=== PATIENT | male | born 1985 | race Caucasian/White ===

== ENCOUNTER 2022-02-03 07:58 | Emergency (ER) | payer BC, MEDICAID, SELFPAY ==
[2022-02-03 08:02] VITALS: BMI 33.9
[2022-02-03 08:05] VITALS: BP 133/89; PULSE 91; RESP 18; TEMP 36.9; O2SAT 97
--- NOTE | 2022-02-03 08:14 | ED_ITS ---
HPI - Male Genitourinary General: Chief complaint: Urogenital-Male Stated complaint: abd pain, cant urinate Time Seen by Provider: 02/03/22 08:04 Source: patient Mode of arrival: ambulatory History of Present Illness: 36-year-old male presents emergency room with complaints of suprapubic pain with nausea he is complaining of some dysuria as well he no hematuria. States several years ago he had a kidney stone and feels the same as this 1. Severe pains in suprapubic region radiating a little bit into the left side. He has not had any diarrhea no hematochezia melena hematemesis or coffee-ground emesis he does feel very nauseous. No fever sweats or chills. Progressively worsening over the last 2 days. Onset (ago): day(s) Duration: constant Location: abdomen (Suprapubic) Radiation: left flank Severity: severe Quality: sharp Relieving factors: none Exacerbating factors: none Associated symptoms: Reports dysuria and nausea; Deny discharge, fevers/chills, hematuria, rash, swelling, urinary incontinence, urinary retention, mass or vomiting Review of Systems Const: Denies: fever(s), chills, body aches, change in appetite, fatigue or malaise ENMT: Denies: throat pain, ear or mastoid pain, nasal discharge or nasal congestion Card: Denies: chest pain, edema, dyspnea on exertion or orthopnea Resp: Denies: dyspnea, productive cough or non-productive cough GI: Reports: abdominal pain, nausea, bloating and GI cramping; Denies: vomiting, diarrhea or constipation : Reports: flank pain and dysuria; Denies: difficulty urinating, urinary frequency, urinary urgency, urinary incontinence or hematuria Musc: Reports: back pain Skin/Breast: Denies: rash or pruritus PFSH ED PFSH: Medical History (Updated 02/03/22 @ 09:52 by Reji Chao DO) Nephrolithiasis Social History (Updated 02/03/22 @ 09:52 by Reji Chao DO) Smoking and tobacco status: never smoked Alcohol intake: never Physical Exam Const: COMMON NORMALS: no acute distress GENERAL APPEARANCE: cooperative and comfortable ORIENTATION/CONSCIOUSNESS: Yes awake, Yes oriented to person, Yes oriented to place and Yes oriented to time HENMT: COMMON NORMALS: normocephalic, atraumatic and hearing grossly normal bilaterally HEAD & SCALP: normocephalic and atraumatic Resp: COMMON NORMALS: normal respiratory effort, No retractions, No use of accessory muscles and clear to auscultation bilaterally AUSCULTATION: clear to auscultation bilaterally Cardio: COMMON NORMALS: regular rate, regular rhythm and No murmurs present (Cardio) RATE: regular rate RHYTHM: regular rhythm GI: COMMON NORMALS: No hepatosplenomegaly present AUSCULTATION: Yes normoactive bowel sounds PALPATION: Yes Tenderness to palpation present (GI) (Suprapubic left lower quadrant), No Guarding due to palpation present (GI) and Yes No hepatosplenomegaly present Extremity: COMMON NORMALS: normal to inspection, capillary refill normal, no clubbing, cyanosis or edema, no calf tenderness and no pedal edema Neuro: SENSORIUM/ORIENTATION: Yes oriented to person, Yes oriented to place and Yes oriented to time Skin: COMMON NORMALS: no rashes or lesions noted GENERAL SKIN EXAM: no rashes or lesions noted Course Vital Signs: Vital signs: Vital Signs Temperature 98.5 F 02/03/22 08:05 Pulse Rate 91 02/03/22 08:05 Respiratory Rate 14 02/03/22 09:02 Blood Pressure 133/89 02/03/22 08:05 Pulse Oximetry 97 02/03/22 09:02 Oxygen Delivery Me thod 02/03/22 08:05 MDM - Male Medical Decision Making Initial presentation was highly suggestive of renal stone. No hematuria CT negative for stone does show acute diverticulitis. We will treat the same Cipro and Flagyl hydrocodone for pain Zofran for nausea clear liquid diet 24 to 48 hours advance as tolerated follow-up with primary care for colonoscopy at some later date. Medical Records I reviewed the patient's medical records. Lab Data I reviewed the patient's lab results. 02/03/22 08:55 02/03/22 08:55 Radiology Impressions Abdomen/Pelvis CT 02/03/22 08:18 IMPRESSION: 1. Acute sigmoid diverticulitis. No drainable abscess or fluid collection. Surrounding inflammatory stranding with edema and a small amount of fluid. Recommend follow-up to resolution. 2. No hydronephrosis. No obstructing renal or ureteral calculi. 3. Normal appendix RIGHT lower quadrant. Message LEFT for Reji Bradshawan, DO at 02/03/2022 9:17 AM. Laboratory Results WBC 11.6 10^3/uL (4.0-10.0) H 02/03/22 08:55 RBC 5.12 10^6/uL (4.1-5.3) 02/03/22 08:55 Hgb 15.1 g/dL (11.7-16.6) 02/03/22 08:55 Hct 44.0 % (42.0-52.0) 02/03/22 08:55 MCV 85.9 fl (80-94) 02/03/22 08:55 MCH 29.5 pg (28.0-34.0) 02/03/22 08:55 MCHC 34.3 g/dL (30.0-36.0) 02/03/22 08:55 RDW 12.8 % (12.1-15.1) 02/03/22 08:55 Plt Count 223 10^3/cmm (130-400) 02/03/22 08:55 MPV 10.0 fL (7.4-10.4) 02/03/22 08:55 Neut % (Auto) 69.6 % 02/03/22 08:55 Lymph % (Auto) 19.6 % 02/03/22 08:55 [place]yer % (Auto) 9.2 % 02/03/22 08:55 Eos % (Auto) 0.9 % 02/03/22 08:55 Baso % (Auto) 0.3 % 02/03/22 08:55 Neut # (Auto) 8.08 10^3/uL (1.8-7.7) H 02/03/22 08:55 Lymph # (Auto) 2.3 10^3/uL (0.8-4.8) 02/03/22 08:55 Dyer # (Auto) 1.1 10^3/uL (0.2-0.9) H 02/03/22 08:55 Eos # (Auto) 0.1 10^3/uL (0.0-0.8) 02/03/22 08:55 Baso # (Auto) 0.0 10^3/uL (0.0-0.1) 02/03/22 08:55 Nucleated RBC % (auto) 0 % 02/03/22 08:55 Nucleated RBCs # 0.0 /100WBC 02/03/22 08:55 Sodium 136 mmol/L (136-145) 02/03/22 08:55 Potassium 4.0 mmol/L (3.5-5.1) 02/03/22 08:55 Chloride 102 mmol/L (98-107) 02/03/22 08:55 Carbon Dioxide 23 mmol/L (22-29) 02/03/22 08:55 Anion Gap 15.0 (5-19) 02/03/22 08:55 BUN 9 mg/dL (6-20) 02/03/22 08:55 Creatinine 0.9 mg/dL (0.7-1.2) 02/03/22 08:55 GFR Calculation 96.0 mL/min (90-130) 02/03/22 08:55 Glucose 127 mg/dL (65-115) H 02/03/22 08:55 Calculated Osmolality 282 mOsm/kg (285-295) L 02/03/22 08:55 Calcium 9.4 mg/dL (8.5-10.5) 02/03/22 08:55 Urine Color Yellow (Yellow) 02/03/22 08:53 Urine Appearance Clear (CLEAR) 02/03/22 08:53 Urine pH 7 (5-7) 02/03/22 08:53 Ur Specific [place] 1.010 (1.005-1.030) 02/03/22 08:53 Urine Protein Neg (Negative) 02/03/22 08:53 Urine Glucose (UA) Norm (Normal) 02/03/22 08:53 Urine Ketones Negative (Negative) 02/03/22 08:53 Urine Blood Neg (Negative) 02/03/22 08:53 Urine Nitrate Negative (Negative) 02/03/22 08:53 Urine Bilirubin Neg (Negative) 02/03/22 08:53 Urine Urobilinogen Norm mg/dL (Negative) 02/03/22 08:53 Ur Leukocyte Esterase Negative (Negative) 02/03/22 08:53 Discharge Plan Discharge Patient Disposition: Home Clinical Impression: Diverticulitis Condition: Stable Prescriptions: New Cipro 500 mg tablet 500 mg PO BID Qty: 20 0RF metronidazole 500 mg tablet 500 mg PO BID 10 Days Qty: 20 0RF hydrocodone-acetaminophen 5-325 mg tablet 1 tab PO Q6H PRN (Reason: pain) Qty: 15 0RF ondansetron HCl 4 mg tablet 4 mg PO Q6H PRN (Reason: nausea and vomiting) Qty: 20 0RF Discharge Orders: Discharge ED (Routine); Ordered 02/03/22 Ordered By: Reji Chao Discharge Diet: Clear Liquid Discharge Activity: Increase activity as tolerated Patient Instructions: Opioid Safety, Pain Management Activity Restrictions/Additional Instructions: Clear liquid diet for the next 24 to 48 hours and advance as needed. Start antibiotics. Follow-up with primary care within the next month will likely need a colonoscopy. Coding Level of Care Code ED Software Licensing Specialist for Marta Cagle
--- NOTE | 2022-02-03 08:18 | CT_ITS ---
WS: [id number] CT ABDOMEN PELVIS TECHNIQUE: Noncontrast CT of the abdomen and pelvis with coronal and sagittal reformatted images. CLINICAL INFORMATION: flank pain COMPARISON: None. DLP: 1034.[address] scans at [facility] use at least one of these dose optimization techniques: automated e xposure control; mA and/or kV adjustment per patient size (includes targeted exams where dose is matc hed to clinical indication); or iterative reconstruction. FINDINGS: No hydronephrosis in either kidney. No obstructing renal or ureteral calculi. Thickening of the sigmoid colon with inflammatory stranding and edema compatible with acute diverticu litis. Small amount of surrounding edema and induration in the mesentery. No drainable abscess or flu id collection. Normal appendix in the RIGHT lower quadrant. Lung bases are well aerated. Normal noncontrast liver. Normal noncontrast spleen. Normal GE junction. Adrenal glands are normal. Noncontrast pancreas is normal. Normal caliber abdominal aorta. Mild aort ic calcification. No abdominal lymphadenopathy. No pelvic or inguinal lymphadenopathy. CT/CT kidney stone [id number] IMPRESSION: 1. Acute sigmoid diverticulitis. No drainable abscess or fluid collection. Krysta rounding inflammatory stranding with edema and a small amount of fluid. Recomme nd follow-up to resolution. 2. No hydronephrosis. No obstructing renal or ureteral calculi. 3. Normal appendix RIGHT lower quadrant. Message LEFT for Reji Chao DO at 02/03/2022 9:17 AM.
[2022-02-03 09:02] VITALS: RESP 14; O2SAT 97
[2022-02-03] MEDS: ondansetron 2 mg/ML SDV 2 mL 4 MG IVP (09:02)
[2022-02-03] MEDS: morphine 4 mg/mL SDV 1 mL 6 MG IVP (09:02)
[2022-02-03 09:03] LABS: Basophils % 0.3 %; Eosinophils # 0.1 10^3/uL (0.0-0.8); Eosinophils % 0.9 %; Hemoglobin 15.1 g/dL (11.7-16.6); Lymphocytes # 2.3 10^3/uL (0.8-4.8); Lymphocytes % 19.6 %; Mean Corpuscular HGB Conc 34.3 g/dL (30.0-36.0); Mean Corpuscular Hemoglobin 29.5 pg (28.0-34.0); Mean Corpuscular Volume 85.9 fl (80-94); Monocytes # 1.1 10^3/uL (0.2-0.9); Monocytes % 9.2 %; Neutrophils # 8.08 10^3/uL (1.8-7.7); Neutrophils % 69.6 %; Nucleated Red Blood Cells % 0 %; Platelet Count 223 10^3/cmm (130-400); Red Blood Count 5.12 10^6/uL (4.1-5.3); Red Cell Distribution Width 12.8 % (12.1-15.1); White Blood Count 11.6 10^3/uL (4.0-10.0)
[2022-02-03] MEDS: sodium chloride 0.9% 1,000 ML 999 ML IV (09:03)
[2022-02-03 09:08] LABS: Add Urine Microscopic? NO; Charge for UA Resulting for Rev
[2022-02-03 09:10] LABS: Bilirubin Urine Neg (Negative); Blood Urine Neg (Negative); Glucose Urine UA Norm (Normal); Ketones Urine Negative (Negative); Leukocyte Esterase Urine Negative (Negative); Nitrate Urine Negative (Negative); Protein Urine Neg (Negative); Urine Appearance Clear (CLEAR); Urine Color Yellow (Yellow); Urobilinogen Urine Norm (Negative); pH Urine 7 (5-7)
[2022-02-03 09:21] LABS: Blood Urea Nitrogen 9 mg/dL (6-20); Calcium 9.4 mg/dL (8.5-10.5); Carbon Dioxide 23 mmol/L (22-29); Chloride 102 mmol/L (98-107); Glucose 127 mg/dL (65-115); Osmolality Calculated 282 mOsm/kg (285-295); Sodium 136 mmol/L (136-145)
[2022-02-03 09:52] VITALS: BP 122/85; PULSE 76; RESP 14; O2SAT 96
== END 2022-02-03 09:53 | disposition home or self-care (01) ==
PROVIDERS: Emergency Provider Family Medicine
DX: K57.92 Diverticulitis of intestine, part unspecified, without perforation or abscess without bleeding (principal)
CPT/HCPCS: 74176; 80048; 81003; 85025; 96361; 96374; 96375; 99285; J2270; J2405; J7030

== ENCOUNTER 2022-02-04 19:45 | Emergency (ER) | payer BC, MEDICAID, SELFPAY ==
[2022-02-04 20:32] VITALS: BP 129/81; PULSE 84; RESP 18; TEMP 37.2; O2SAT 95; BMI 36.4
--- NOTE | 2022-02-04 20:33 | XRR_ITS ---
PROCEDURE INFORMATION: Exam: XR Abdomen Exam date and time: 02/04/2022 9:14 PM Age: 36 years old Clinical indication: Abdominal pain; Acute; Additional info: Worsening abd pain, dx diverticulitis yesterday TECHNIQUE: Imaging protocol: Radiologic exam of the abdomen. Views: Frontal supine view of the abdomen. 1 View. COMPARISON: CT kidney stone [id number] 02/03/2022 8:37 AM FINDINGS: Gastrointestinal tract: [id number] constipation without bowel dilation to indicate obstruction. Bones/joints: Unremarkable. XR/XR abdomen 1V* [id number] IMPRESSION: [id number] constipation without bowel dilation to indicate obstruction.
[2022-02-04 22:37] LABS: Basophils % 0.3 %; Eosinophils # 0.1 10^3/uL (0.0-0.8); Hematocrit 43.8 % (42.0-52.0); Hemoglobin 14.7 g/dL (11.7-16.6); Lymphocytes % 31.5 %; Mean Corpuscular HGB Conc 33.6 g/dL (30.0-36.0); Mean Corpuscular Hemoglobin 29.5 pg (28.0-34.0); Mean Corpuscular Volume 87.8 fl (80-94); Mean Platelet Volume 10.4 fL (7.4-10.4); Monocytes # 1.3 10^3/uL (0.2-0.9); Monocytes % 10.3 %; Neutrophils # 7.09 10^3/uL (1.8-7.7); Neutrophils % 56.3 %; Nucleated Red Blood Cells % 0 %; Platelet Count 246 10^3/cmm (130-400); Red Blood Count 4.99 10^6/uL (4.1-5.3); Red Cell Distribution Width 12.7 % (12.1-15.1); White Blood Count 12.6 10^3/uL (4.0-10.0)
[2022-02-04 22:58] LABS: Anion Gap 16.1 (5-19); Blood Urea Nitrogen 8 mg/dL (6-20); Calcium 9.4 mg/dL (8.5-10.5); Carbon Dioxide 25 mmol/L (22-29); Chloride 100 mmol/L (98-107); Glucose 89 mg/dL (65-115); Osmolality Calculated 282 mOsm/kg (285-295); Potassium 4.1 mmol/L (3.5-5.1); Sodium 137 mmol/L (136-145)
[2022-02-04 22:59] LABS: Lactic Sepsis W/Reflex 0.7 mmol/L (0.5-2.2)
--- NOTE | 2022-02-05 01:04 | CTR_ITS ---
PROCEDURE INFORMATION: Exam: CT Abdomen And Pelvis Without Contrast Exam date and time: 02/05/2022 1:28 AM Age: 36 years old Clinical indication: Abdominal pain; Localized; Left lower quadrant (llq); Additional info: Llq pain, constipation TECHNIQUE: Imaging protocol: Computed tomography of the abdomen and pelvis without contrast. Radiation optimization: All CT scans at this facility use at least one of these dose optimization techniques: automated exposure control; mA and/or kV adjustment per patient size (includes targeted exams where dose is matched to clinical indication); or iterative reconstruction. COMPARISON: CR (ABDOMEN, ) 02/04/2022 9:14 PM RADIATION DOSE METRICS: Total DLP (mGy-cm): 1150.22 FINDINGS: Lungs: Bibasilar atelectasis versus minimal infiltrate. Heart: Coronary artery atherosclerotic calcifications. Liver: Hepatic steatosis. Gallbladder and bile ducts: Normal. No calcified stones. No ductal dilation. Pancreas: Normal. No ductal dilation. Spleen: Normal. No splenomegaly. Adrenal glands: Normal. No mass. Kidneys and ureters: Right kidney punctate nonobstructing calyceal stone. Stomach and bowel: Edema and nonlocalized fluid seen about the mid sigmoid colon in the area of multiple diverticula consistent with diverticulitis. Constipation. Appendix: No evidence of appendicitis. Intraperitoneal space: Unremarkable. No free air. No significant fluid collection. Vasculature: Unremarkable. No abdominal aortic aneurysm. Lymph nodes: Unremarkable. No enlarged lymph nodes. Urinary bladder: Unremarkable as visualized. Reproductive: Unremarkable as visualized. Bones/joints: Unremarkable. No acute fracture. Soft tissues: Unremarkable. CT/CT abdomen pelvis [facility] [id number] IMPRESSION: 1. Edema and nonlocalized fluid seen about the mid sigmoid colon in the area of multiple diverticula consistent with diverticulitis. 2. Bibasilar atelectasis versus minimal infiltrate. 3. Coronary artery atherosclerotic calcifications. 4. Hepatic steatosis. 5. Constipation. 6.Right kidney punctate nonobstructing calyceal stone.
--- NOTE | 2022-02-05 01:16 | W.ED.ABDPA2 ---
Documented by User: [email or web address] Gentile 02/05/22 02:20 HPI - Abdominal Pain General: Chief Complaint: Abdominal Pain Stated Complaint: fever, High P/B, abd pain Time Seen by Provider: 02/05/22 00:38 History of Present Illness: Patient is a 36-year-old male who comes to the ED with abdominal pain. Patient was seen here in the ED for same complaint on February 03 and diagnosed with diverticulitis. He was discharged home with a prescription for nausea meds, Miller, Cipro and Flagyl. Patient says he is taking all his antibiotic doses for the past 2 days. He has been able to manage his symptoms with the hydrocodone and Zofran. Today he developed a fever and he describes his abdominal pain being a little more severe and sharp. It is located in the left lower quadrant of the abdomen. He endorses being constipated and says his last bowel movement was on February 02. Associated Symptoms: Reports constipation, fever(s) and nausea; Denies chills, diarrhea, dysuria, hematochezia, hematuria and vomiting Review of Systems Const: Reports: fever(s); Denies: chills or fatigue Eyes: Denies: change in vision or eye discomfort ENMT: Denies: throat pain, odynophagia, nasal discharge or nasal congestion Card: Denies: chest pain, palpitations, edema, swelling of feet/ankles, dyspnea on exertion or orthopnea Resp: Denies: dyspnea, productive cough or non-productive cough GI: Reports: abdominal pain (Left lower quadrant), nausea and constipation; Denies: vomiting, diarrhea or hematochezia : Denies: flank pain, difficulty urinating, dysuria or hematuria Musc: Denies: neck pain, back pain or extremity swelling Skin/Breast: Denies: rash or new lesions Neuro: Denies: headache(s), numbness in extremities or weakness in extremities PFS ED PFSH: Medical History Nephrolithiasis No pertinent family history Social History Smoking and tobacco status: never smoked Alcohol intake: never Physical Exam Const: COMMON NORMALS: patient oriented x3 and alert GENERAL APPEARANCE: cooperative and comfortable HENMT: COMMON NORMALS: normocephalic HEAD & SCALP: normocephalic MOUTH: Normal oral and palatal mucosa present THROAT: posterior oropharynx normal and uvula midline Neck/C-Spine: COMMON NORMALS: supple GENERAL: Yes normal visual inspection Resp: COMMON NORMALS: normal respiratory effort, No retractions, No use of accessory muscles and clear to auscultation bilaterally AUSCULTATION: clear to auscultation bilaterally Cardio: COMMON NORMALS: regular rate, regular rhythm, S1 normal heart sound present, S2 normal heart sound present, No gallops present (Cardio), No clicks present (Cardio), No murmurs present (Cardio) and Peripheral pulses 2+ throughout RATE: regular rate RHYTHM: regular rhythm HEART SOUNDS: S1 normal heart sound present and S2 normal heart sound present PERIPHERAL PULSES: Peripheral pulses 2+ throughout GI: COMMON NORMALS: Normal to inspection, nondistended, normoactive bowel sounds present, Soft to palpation, non-tender and no masses PALPATION: Yes Soft to palpation and Yes Tenderness to palpation present (GI) Details: LLQ : COMMON NORMALS: Yes no CVA tenderness BLADDER/KIDNEY EXAM: Yes no CVA tenderness Back/Pelvis: COMMON NORMALS: no CVA tenderness Extremity: COMMON NORMALS: normal to inspection Neuro: COMMON NORMALS: patient oriented x3 SENSORIUM/ORIENTATION: Yes alert GAIT: Yes Normal gait present Skin: GENERAL SKIN EXAM: dry skin Course Vital Signs: Vital signs: Vital Signs Temperature 98.9 F 02/04/22 20:32 Pulse Rate 76 02/05/22 02:48 Respiratory Rate 16 02/05/22 02:48 Blood Pressure 131/86 02/05/22 02:48 Pulse Oximetry 95 02/05/22 02:48 Oxygen Delivery Me thod 02/04/22 20:32 MDM - Abdominal Pain Medical Decision Making Patient is a 36-year-old male who comes to the ED with abdominal pain. Patient was seen here in the ED for same complaint on February 03 and diagnosed with diverticulitis. He was discharged home with a prescription for nausea meds, Miller, Cipro and Flagyl. Patient says he is taking all his antibiotic doses for the past 2 days. He has been able to manage his symptoms with the hydrocodone and Zofran. Endorses constipation. Vitals are stable and patient is afebrile. Patient appears nontoxic in no acute distress or pain. Patient has some left lower quadrant abdominal tenderness but the rest of exam is benign. White blood cell count 12.6 which is up from 11.6 2 days ago. Rest of CBC and CMP were unremarkable. Abdominal x-ray showed mild to moderate constipation with no other acute finding. CT of abdomen pelvis showed diverticulitis with no abscess or perforation seen. Given patient's clinical appearance labs and CT findings he is stable for discharge home. He was diagnosed with diverticulitis and constipation and discharged home with a prescription for stool softener and MiraLAX. He was told to continue taking his previously prescribed antibiotics, Zofran and Miller for pain. Follow-up with PCP within the next week for reevaluation. Return to ED precautions given. Patient understood and agreed with plan. Lab Data I reviewed the patient's lab results. 02/04/22 21:55 02/04/22 21:55 Labs/Radiology: Radiology Impressions Abdomen X-Ray 02/04/22 20:33 IMPRESSION: [id number] constipation without bowel dilation to indicate obstruction. Abdomen/Pelvis CT 02/05/22 01:04 IMPRESSION: 1. Edema and nonlocalized fluid seen about the mid sigmoid colon in the area of multiple diverticula consistent with diverticulitis. 2. Bibasilar atelectasis versus minimal infiltrate. 3. Coronary artery atherosclerotic calcifications. 4. Hepatic steatosis. 5. Constipation. 6.Right kidney punctate nonobstructing calyceal stone. Laboratory Results WBC 12.6 10^3/uL (4.0-10.0) H 02/04/22 21:55 RBC 4.99 10^6/uL (4.1-5.3) 02/04/22 21:55 Hgb 14.7 g/dL (11.7-16.6) 02/04/22 21:55 Hct 43.8 % (42.0-52.0) 02/04/22 21:55 MCV 87.8 fl (80-94) 02/04/22 21:55 MCH 29.5 pg (28.0-34.0) 02/04/22 21:55 MCHC 33.6 g/dL (30.0-36.0) 02/04/22 21:55 RDW 12.7 % (12.1-15.1) 02/04/22 21:55 Plt Count 246 10^3/cmm (130-400) 02/04/22 21:55 MPV 10.4 fL (7.4-10.4) 02/04/22 21:55 Neut % (Auto) 56.3 % 02/04/22 21:55 Lymph % (Auto) 31.5 % 02/04/22 21:55 [place] % (Auto) 10.3 % 02/04/22 21:55 Eos % (Auto) 1.0 % 02/04/22 21:55 Baso % (Auto) 0.3 % 02/04/22 21:55 Neut # (Auto) 7.09 10^3/uL (1.8-7.7) 02/04/22 21:55 Lymph # (Auto) 4.0 10^3/uL (0.8-4.8) 02/04/22 21:55 [place] # (Auto) 1.3 10^3/uL (0.2-0.9) H 02/04/22 21:55 Eos # (Auto) 0.1 10^3/uL (0.0-0.8) 02/04/22 21:55 Baso # (Auto) 0.0 10^3/uL (0.0-0.1) 02/04/22 21:55 Nucleated RBC % (auto) 0 % 02/04/22 21:55 Nucleated RBCs # 0.0 /100WBC 02/04/22 21:55 Sodium 137 mmol/L (136-145) 02/04/22 21:55 Potassium 4.1 mmol/L (3.5-5.1) 02/04/22 21:55 Chloride 100 mmol/L (98-107) 02/04/22 21:55 Carbon Dioxide 25 mmol/L (22-29) 02/04/22 21:55 Anion Gap 16.1 (5-19) 02/04/22 21:55 BUN 8 mg/dL (6-20) 02/04/22 21:55 Creatinine 1.0 mg/dL (0.7-1.2) 02/04/22 21:55 GFR Calculation 85.0 mL/min (90-130) L 02/04/22 21:55 Glucose 89 mg/dL (65-115) 02/04/22 21:55 Calculated Osmolality 282 mOsm/kg (285-295) L 02/04/22 21:55 Lactic Acid 0.7 mmol/L (0.5-2.2) 02/04/22 21:55 Calcium 9.4 mg/dL (8.5-10.5) 02/04/22 21:55 Discharge Plan Discharge Patient Disposition: Home Clinical Impression: Constipation Qualifiers: Constipation type: unspecified constipation type Qualified Code(s): K59.00 - Constipation, unspecified Clinical Impression: (Ruled Out): Diverticulitis Condition: Stable Prescriptions: New Miralax 17 gram/dose powder 17 g PO DAILY 3 Days Qty: 119 0RF docusate sodium 100 mg capsule 100 mg PO TID PRN (Reason: constipation) Qty: 20 0RF No Action Cipro 500 mg tablet 500 mg PO BID Qty: 20 0RF metronidazole 500 mg tablet 500 mg PO BID 10 Days Qty: 20 0RF hydrocodone-acetaminophen 5-325 mg tablet 1 tab PO Q6H PRN (Reason: pain) Qty: 15 0RF ondansetron HCl 4 mg tablet 4 mg PO Q6H PRN (Reason: nausea and vomiting) Qty: 20 0RF Discharge Orders: Discharge ED (Routine); Ordered 02/05/22 Ordered By: Quirino Rodriguez Discharge Diet: Advance as tolerated Discharge Activity: Increase activity as tolerated Patient Instructions: Diverticulitis, Constipation (DC), Opioid Safety Activity Restrictions/Additional Instructions: Follow-up with medical provider as directed in the next 5 to 7 days for reevaluation. Take medications as prescribed. Drink plenty of fluids and stay hydrated. Return to the ER or your medical provider if condition worsens. Please read and understand discharge instructions. Thank you for choosing [facility] for your healthcare needs today. Please realize this is an emergency room and that we are providing you with a medical screening exam and this may not be complete and all inclusive of all the testing and or work up that you may need to determine your ailment or severity of your illness. It is very important that you follow up as instructed or that you return to the Emergency Department should you have concerns or if your condition changes or worsens in any way. Coding Level of Care Code ED [employer] for Chg Fwd Exam Comprehensive Documented by User: Orlando Schroeder DO 02/05/22 16:22 HPI - Abdominal Pain General: Chief Complaint: Abdominal Pain Stated Complaint: fever, High P/B, abd pain Time Seen by Provider: 02/05/22 00:38 PFS ED PFSH: Medical History Nephrolithiasis No pertinent family history Social History Smoking and tobacco status: never smoked Alcohol intake: never Course Vital Signs: Vital signs: Vital Signs Temperature 98.9 F 02/04/22 20:32 Pulse Rate 76 02/05/22 02:48 Respiratory Rate 16 02/05/22 02:48 Blood Pressure 131/86 02/05/22 02:48 Pulse Oximetry 95 02/05/22 02:48 Oxygen Delivery Me thod 02/04/22 20:32 MDM - Abdominal Pain Medical Decision Making Patient is a 36-year-old male who comes to the ED with abdominal pain. Patient was seen here in the ED for same complaint on February 03 and diagnosed with diverticulitis. He was discharged home with a prescription for nausea meds, Miller, Cipro and Flagyl. Patient says he is taking all his antibiotic doses for the past 2 days. He has been able to manage his symptoms with the hydrocodone and Zofran. Endorses constipation. Vitals are stable and patient is afebrile. Patient appears nontoxic in no acute distress or pain. Patient has some left lower quadrant abdominal tenderness but the rest of exam is benign. White blood cell count 12.6 which is up from 11.6 2 days ago. Rest of CBC and CMP were unremarkable. Abdominal x-ray showed mild to moderate constipation with no other acute finding. CT of abdomen pelvis showed diverticulitis with no abscess or perforation seen. Given patient's clinical appearance labs and CT findings he is stable for discharge home. He was diagnosed with diverticulitis and constipation and discharged home with a prescription for stool softener and MiraLAX. He was told to continue taking his previously prescribed antibiotics, Zofran and Miller for pain. Follow-up with PCP within the next week for reevaluation. Return to ED precautions given. Patient understood and agreed with plan. This patient was originally seen by Mr. Michael PA-C. I agree with his history, evaluation, and management. Lab Data 02/04/22 21:55 02/04/22 21:55 Labs/Radiology: Radiology Impressions Abdomen X-Ray 02/04/22 20:33 IMPRESSION: [id number] constipation without bowel dilation to indicate obstruction. Abdomen/Pelvis CT 02/05/22 01:04 IMPRESSION: 1. Edema and nonlocalized fluid seen about the mid sigmoid colon in the area of multiple diverticula consistent with diverticulitis. 2. Bibasilar atelectasis versus minimal infiltrate. 3. Coronary artery atherosclerotic calcifications. 4. Hepatic steatosis. 5. Constipation. 6.Right kidney punctate nonobstructing calyceal stone. Laboratory Results WBC 12.6 10^3/uL (4.0-10.0) H 02/04/22 21:55 RBC 4.99 10^6/uL (4.1-5.3) 02/04/22 21:55 Hgb 14.7 g/dL (11.7-16.6) 02/04/22 21:55 Hct 43.8 % (42.0-52.0) 02/04/22 21:55 MCV 87.8 fl (80-94) 02/04/22 21:55 MCH 29.5 pg (28.0-34.0) 02/04/22 21:55 MCHC 33.6 g/dL (30.0-36.0) 02/04/22 21:55 RDW 12.7 % (12.1-15.1) 02/04/22 21:55 Plt Count 246 10^3/cmm (130-400) 02/04/22 21:55 MPV 10.4 fL (7.4-10.4) 02/04/22 21:55 Neut % (Auto) 56.3 % 02/04/22 21:55 Lymph % (Auto) 31.5 % 02/04/22 21:55 [place] % (Auto) 10.3 % 02/04/22 21:55 Eos % (Auto) 1.0 % 02/04/22 21:55 Baso % (Auto) 0.3 % 02/04/22 21:55 Neut # (Auto) 7.09 10^3/uL (1.8-7.7) 02/04/22 21:55 Lymph # (Auto) 4.0 10^3/uL (0.8-4.8) 02/04/22 21:55 [place] # (Auto) 1.3 10^3/uL (0.2-0.9) H 02/04/22 21:55 Eos # (Auto) 0.1 10^3/uL (0.0-0.8) 02/04/22 21:55 Baso # (Auto) 0.0 10^3/uL (0.0-0.1) 02/04/22 21:55 Nucleated RBC % (auto) 0 % 02/04/22 21:55 Nucleated RBCs # 0.0 /100WBC 02/04/22 21:55 Sodium 137 mmol/L (136-145) 02/04/22 21:55 Potassium 4.1 mmol/L (3.5-5.1) 02/04/22 21:55 Chloride 100 mmol/L (98-107) 02/04/22 21:55 Carbon Dioxide 25 mmol/L (22-29) 02/04/22 21:55 Anion Gap 16.1 (5-19) 02/04/22 21:55 BUN 8 mg/dL (6-20) 02/04/22 21:55 Creatinine 1.0 mg/dL (0.7-1.2) 02/04/22 21:55 GFR Calculation 85.0 mL/min (90-130) L 02/04/22 21:55 Glucose 89 mg/dL (65-115) 02/04/22 21:55 Calculated Osmolality 282 mOsm/kg (285-295) L 02/04/22 21:55 Lactic Acid 0.7 mmol/L (0.5-2.2) 02/04/22 21:55 Calcium 9.4 mg/dL (8.5-10.5) 02/04/22 21:55 Discharge Plan Discharge Patient Disposition: Home Clinical Impression: Constipation Qualifiers: Constipation type: unspecified constipation type Qualified Code(s): K59.00 - Constipation, unspecified Clinical Impression: (Ruled Out): Diverticulitis Condition: Stable Prescriptions: New Miralax 17 gram/dose powder 17 g PO DAILY 3 Days Qty: 119 0RF docusate sodium 100 mg capsule 100 mg PO TID PRN (Reason: constipation) Qty: 20 0RF No Action Cipro 500 mg tablet 500 mg PO BID Qty: 20 0RF metronidazole 500 mg tablet 500 mg PO BID 10 Days Qty: 20 0RF hydrocodone-acetaminophen 5-325 mg tablet 1 tab PO Q6H PRN (Reason: pain) Qty: 15 0RF ondansetron HCl 4 mg tablet 4 mg PO Q6H PRN (Reason: nausea and vomiting) Qty: 20 0RF Discharge Orders: Discharge ED (Routine); Ordered 02/05/22 Ordered By: Quirino Rodriguez Discharge Diet: Advance as tolerated Discharge Activity: Increase activity as tolerated Patient Instructions: Diverticulitis, Constipation (DC), Opioid Safety Activity Restrictions/Additional Instructions: Follow-up with medical provider as directed in the next 5 to 7 days for reevaluation. Take medications as prescribed. Drink plenty of fluids and stay hydrated. Return to the ER or your medical provider if condition worsens. Please read and understand discharge instructions. Thank you for choosing [facility] for your healthcare needs today. Please realize this is an emergency room and that we are providing you with a medical screening exam and this may not be complete and all inclusive of all the testing and or work up that you may need to determine your ailment or severity of your illness. It is very important that you follow up as instructed or that you return to the Emergency Department should you have concerns or if your condition changes or worsens in any way. Coding Level of Care Code ED [employer] for Marta Fwd Exam Comprehensive
[2022-02-05 02:48] VITALS: BP 131/86; PULSE 76; RESP 16; O2SAT 95
== END 2022-02-05 02:49 | disposition home or self-care (01) ==
PROVIDERS: Emergency Medicine; Emergency Provider Physician Assistant
DX: K59.00 Constipation, unspecified (principal)
CPT/HCPCS: 74018; 74176; 80048; 83605; 85025; 87040; 99284